=== PATIENT | male | born 1990 | race Two or more races ===

== ENCOUNTER 2024-05-09 12:44 | Emergency (ER) | payer OTHER ==
[2024-05-09 12:56] VITALS: BMI 23.6
[2024-05-09] MEDS: morphine SULFATE 4 MG/ML VIAL IVPUSH ONE (13:02)
[2024-05-09 13:08] LABS: BASO % 0.6 % (0-2.0); HEMATOCRIT 47.5 % (35.4-49); HEMOGLOBIN 16.2 GM/dL (11.7-16.9); LYMPH % 35.7 % (8-40); MCH 30.9 pg (25.7-33.7); MCHC 34.1 g/dl (32.0-35.9); MEAN CELL VOLUME 90.7 fl (80-96); MEAN PLT VOLUME 7.9 fl (7.5-11.1); MONO % 5.6 % (3.8-10.2); NEUT % 57.1 % (42.8-82.8); PLATELET COUNT 227 10^3/uL (134-434); RBC 5.24 M/mm3 (4.00-5.60); RDW 13.8 % (11.9-15.9); WHITE BLOOD COUNT 5.3 K/mm3 (4.0-10.0)
[2024-05-09 13:14] LABS: INR 0.89 (0.83-1.09); PROTHROMBIN TIME (PATIENT) 10.1 SEC (9.7-13.0)
[2024-05-09 13:17] LABS: ACTIVATED PTT 29.9 SECONDS (25.2-36.5)
[2024-05-09 13:29] LABS: CALCIUM 9.3 mg/dL (8.5-10.1)
[2024-05-09 13:30] LABS: ALBUMIN 4.2 g/dl (3.4-5.0); BLOOD UREA NITROGEN 12.5 mg/dL (7-18)
[2024-05-09 13:33] LABS: CREATININE 0.9 mg/dL (0.55-1.3)
[2024-05-09 13:34] LABS: BILIRUBIN,TOTAL 0.9 mg/dL (0.2-1)
[2024-05-09 13:35] LABS: TOT PROT 7.9 g/dl (6.4-8.2)
[2024-05-09 13:45] LABS: MAGNESIUM 2.1 mg/dL (1.8-2.4)
[2024-05-09 13:49] LABS: PHOSPHOROUS 2.7 mg/dL (2.5-4.9)
[2024-05-09 15:55] VITALS: BP 129/93; PULSE 70; RESP 14
== END 2024-05-09 17:34 | disposition home or self-care (01) ==
LOC: JER 12:44
PROC: 3E033NZ Introduction of Analgesics, Hypnotics, Sedatives into Peripheral Vein, Percutaneous Approach (ICD-10-PCS; principal; 2024-05-09)
DX: M25.532 Pain in left wrist (principal)
CPT/HCPCS: 36415; 73090-TC-LT-FY; 73110-TC-LT-FY; 73130-TC-LT-FY; 73140-TC-LT-FY; 73200-TC-RT; 80053; 82550; 82553; 83735; 84100; 84484; 85025; 85610; 85730; 86850; 86900; 86901; 93005; 93010; 99285-25